=== PATIENT | female | born 1985 | race Caucasian/White ===

== ENCOUNTER → 2016-08-23 | Outpatient (CLI) | payer OTHER ==
--- NOTE | 2016-08-24 13:25 | RAD ---
DATE: 08/23/16 EXAM: DIGITAL DIAGNOSTIC BILATERAL HISTORY: Bilateral breast pain, patient finished breast-feeding 6 months ago COMPARISON: None available This study was interpreted with the benefit of Computerized Aided Detection (CAD ). TECHNIQUE: Routine CC and MLO views of both breasts are obtained. FINDINGS: Breast Density: DENSE The breast parenchyma is dense, which could reduce the sensitivity of mammography. Breast parenchyma level density D.. There has been a previous benign left breast biopsy/cyst excision. There is a group of calcification in the left upper medial breast and right upper outer breast. These were evaluated by spot magnification views and appear benign. IMPRESSION: Groups of calcifications in both breasts are benign. Since patient is young and has no family history of breast cancer, it is recommended that patient comes back at age 38 for a screening mammogram. If any time patient feels a palpable lump or symptoms of breast pain continue, follow-up breast ultrasound may be of additional benefit. BI-RADS CATEGORY: 2 BENIGN FINDING(S) RECOMMENDED FOLLOW-UP: At patient age 38 PQRS compliance statement: Patient information was entered into a reminder system with a target due date for the next mammogram. Mammography is a sensitive method for finding small breast cancers, but it does not detect them all and is not a substitute for careful clinical examination. A negative mammogram does not negate a clinically suspicious finding and should not result in delay in biopsying a clinically suspicious abnormality. "Our facility is accredited by the [employer] Mammography Program." FRANCISCOD
== END | disposition home or self-care (01) ==
LOC: MAMMO 12:37
PROVIDERS: ATTEND Nurse Practitioner Family
DX: N64.4 Mastodynia (principal); R92.1 Mammographic calcification found on diagnostic imaging of breast
CPT/HCPCS: G0204; 77066

== ENCOUNTER → 2016-08-30 | Outpatient (CLI) | payer OTHER ==
--- NOTE | 2016-08-30 16:55 | RAD ---
Examination: Targeted ultrasound right breast History: History of right breast pain Comparison: Mammogram from 08/23/2016 Findings Targeted ultrasound of the right breast at the site of pain from 5 to 9:00 position demonstrated no definite evidence of mass or lesion identified. Impression: Benign findings BI-RADS Category 2.
== END | disposition home or self-care (01) ==
LOC: US 14:42
PROVIDERS: ATTEND Nurse Practitioner Family
DX: R92.8 Other abnormal and inconclusive findings on diagnostic imaging of breast (principal); N64.4 Mastodynia
CPT/HCPCS: 76641